=== PATIENT | female | born 1960 | race Caucasian/White ===

== ENCOUNTER 2019-01-28 14:14 | Emergency (ER) | payer OTHER ==
[~2019-01-28] VITALS: Ht 160 cm; Wt 99.8 kg
[2019-01-28 14:47] VITALS: BP 147/80
[2019-01-28] MEDS ORDERED: KETOROLAC 60 MG/2 ML VIAL. IM ONE (15:15)
[2019-01-28] MEDS ORDERED: predniSONE 20 MG TABLET PO ONE (15:15)
[2019-01-28] MEDS ORDERED: HYDROcodone/APAP 5/325MG 1 TAB TABLET PO ONE (15:15)
--- NOTE | 2019-01-28 15:27 | RAD ---
3 view study of the right knee Clinical indications: Right knee pain and swelling. FINDINGS: No acute fracture or dislocation or lytic process is seen. There is mild degenerative joint space narrowing and spurring of the medial tibiofemoral joint compartment. Mild degenerative spurring of the patella is seen. No significant knee joint effusion is seen radiographically. IMPRESSION: Mild primary degenerative osteoarthritis. Electronically signed by: Rafi Peace MD (01/28/2019 3:24 PM) [facility]
[2019-01-28] MEDS ORDERED: METH4TAB2 PO (15:48)
[2019-01-28] MEDS ORDERED: DICL50TA2 PO (15:48)
--- NOTE | 2019-01-28 15:49 | PHYS DOC ---
Past Medical History Past Medical History: Other Additional Past Medical Histor: RA Past Surgical History: Hip Replacement, Knee Replacement Additional Past Surgical Histo: L. SIDE Alcohol Use: None Drug Use: None Adult General Chief Complaint Chief Complaint: LOWER EXTREMITY SWELLING HPI HPI Patient is a 58 year old female with history of rheumatoid arthritis who presents to the ED today complaining of 10 out of 10 right knee pain that began 2 days ago. Patient states she has history of chronic right knee pain but it has gotten worse in the last 2 days. Denies any known injury. Describes the pain as sharp and a feeling of tightness behind her knee and states the pain radiates to the groin. Denies anything specifically relieving the pain. Review of Systems Review of Systems Constitutional: Denies fever or chills [] Musculoskeletal: Reports right knee pain Integument: Denies rash or skin lesions [] Neurologic: Denies headache, focal weakness or sensory changes [] All other systems were reviewed and found to be within normal limits, except as documented in this note. Current Medications Current Medications Current Medications Medications (Trade) Dose Ordered Sig/Chris Start Time Stop Time Status Last Admin Dose Admin Acetaminophen/ Hydrocodone Bitart (Lortab 5/325) 2 tab 1X ONCE 01/28/19 15:15 01/28/19 15:16 DC 01/28/19 15:23 2 TAB Ketorolac Tromethamine (Toradol Im) 60 mg 1X ONCE 01/28/19 15:15 01/28/19 15:16 DC 01/28/19 15:23 60 MG Prednisone (Prednisone) 60 mg 1X ONCE 01/28/19 15:15 01/28/19 15:16 DC 01/28/19 15:23 60 MG Allergies Allergies Allergies Coded Allergies Type Severity Reaction Last Updated Verified No Known Drug Allergies 01/28/19 No Physical Exam Physical Exam Constitutional: Well developed, well nourished, no acute distress, non-toxic appearance. [] Abdomen: Bowel sounds normal, soft, no tenderness, no masses, no pulsatile masses. [] Skin: Warm, dry, no erythema, no rash. [] Back: No tenderness, no CVA tenderness. [] Extremities: Obese patient. Right knee with no obvious deformity. Full range of motion to the right knee. +2 right pedal pulse. Cap refill less than 2 seconds to the right lower extremity. Sensation intact to the right lower extremity. Neurologic: Alert and oriented X 3, normal motor function, normal sensory function, no focal deficits noted. [] Psychologic: Affect normal, judgement normal, mood normal. [] Current Patient Data Vital Signs Vital Signs Date Time Temp Pulse Resp B/P (MAP) Pulse Ox O2 Delivery O2 Flow Rate FiO2 01/28/19 15:23 18 01/28/19 14:47 98.1 88 147/80 (102) 96 Room Air 98.1 EKG EKG [] Radiology/Procedures Radiology/Procedures []PROCEDURE: KNEE RIGHT 3V 3 view study of the right knee Clinical indications: Right knee pain and swelling. FINDINGS: No acute fracture or dislocation or lytic process is seen. There is mild degenerative joint space narrowing and spurring of the medial tibiofemoral joint compartment. Mild degenerative spurring of the patella is seen. No significant knee joint effusion is seen radiographically. IMPRESSION: Mild primary degenerative osteoarthritis. Electronically signed by: Michael Peace MD (01/28/2019 3:24 PM) [facility] DICTATED and SIGNED BY: MICHAEL PEACE MD DATE: 01/28/19 1524 Course & Med Decision Making Course & Med Decision Making Pertinent Labs and Imaging studies reviewed. (See chart for details) This is a 58-year-old. Patient presented to the ED today with right knee pain that began 2 days ago and has gotten worse over the weekend. No known injury. History of chronic knee pain. Right knee x-rays interpreted by radiologist were noted for DJD of the right knee. Shan bandage applied to the right knee by the ED RN, neurovascular exam is intact. Ice elevation encouraged. Prescription for Medrol Dosepak and diclofenac provided. Follow-up with orthopedic doctor in the next 7 days. Dragon Disclaimer Dragon Disclaimer This electronic medical record was generated, in whole or in part, using a voice recognition dictation system. Departure Departure Impression: Primary Impression: Right knee DJD Additional Impression: Right knee pain Disposition: 01 HOME, SELF-CARE Condition: STABLE Referrals: TASHI TERAN MD (PCP) ROSANA BRAVO MD follow up in one week Patient Instructions: Arthritis, Degenerative-Brief Additional Instructions: You were evaluated in the emergency for right knee pain and noted to have osteoarthritis. Try to ice elevate the extremity. Follow-up with your own doctor in one week. Scripts Diclofenac Potassium (DICLOFENAC POTASSIUM) 50 Mg Tablet 1 TAB PO BID, #20 TAB 0 Refills Prov: SHAMEKA BURGER DIAMOND 01/28/19 Methylprednisolone (MEDROL) 4 Mg Tab.ds.pk 1 PKG PO UD, #1 PKG Prov: SHAMEKA BURGER [employer]CH[employer]IC 01/28/19 Problem Qualifiers Primary Impression: Right knee DJD Osteoarthritis type: primary Qualified Codes: M17.11 - Unilateral primary osteoarthritis, right knee Additional Impression: Right knee pain Chronicity: chronic Qualified Codes: M25.561 - Pain in right knee; G89.29 - Other chronic pain SHAMEKA BURGER DIAMOND Jan 28, 2019 15:48
== END 2019-01-28 16:18 | disposition home or self-care (01) ==
LOC: ER 14:14
DX: M17.11 Unilateral primary osteoarthritis, right knee (principal); G89.29 Other chronic pain; M06.9 Rheumatoid arthritis, unspecified; Z96.652 Presence of left artificial knee joint; Z96.642 Presence of left artificial hip joint
CPT/HCPCS: 73562; 96372; 99284; J1885; J7512

== ENCOUNTER → 2019-04-16 | Outpatient (CLI) | payer OTHER ==
[~2019-04-16] MED LIST: DICL50TA2 PO; METH4TAB2 PO
--- NOTE | 2019-04-16 14:12 | CARD ---
MR#: [id number] Date of Study: 04/16/2019 Ordering Physician: HELIO BRUCE, Referring Physician: Lalo LEYVA: Kristine Colmenares APPROVED REPORT EXAM: Two-dimensional and M-mode echocardiogram with Doppler and color Doppler. Other Information Quality : AverageHR: 63bpm INDICATION Hypertension/HCVD 2D DIMENSIONS RVDd3.1 (2.9-3.5cm)Left Atrium(2D)3.7 (1.6-4.0cm) IVSd1.1 (0.7-1.1cm)Aortic Root(2D)2.4 (2.0-3.7cm) LVDd5.0 (3.9-5.9cm)LVOT Diameter2.0 (1.8-2.4cm) PWd0.7 (0.7-1.1cm)LVDs3.0 (2.5-4.0cm) FS (%) 38.9 %SV80.3 ml LVEF(%)69.1 (>50%) Aortic Valve AoV Peak Tony.196.3cm/sAoV VTI47.1cm AO Peak GR.15.4mmHgLVOT Peak Tony.128.6cm/s AO Mean GR.9mmHgAVA (VMAX)2.00cm2 Mitral Valve MV E Cxzzlipj54.0cm/sMV E Peak Gr.5mmHg MV DECEL [id number] A Qrnxubjm463.9cm/s MV E Mean Gr.2mmHgE/A Ratio0.8 Pulmonary Valve PV Peak Sgvqbqwk909.8cm/s Tricuspid Valve RAP [id number] Pulmonary Vein S1 Gtimdmvk19.0cm/sD2 [place]33.0cm/s LEFT VENTRICLE The left ventricle is normal size. There is normal left ventricular wall thickness. The left ventricu lar systolic function is normal. The Ejection Fraction is 60-65%. There is normal LV segmental wall m otion. Transmitral Doppler flow pattern is Grade I-abnormal relaxation pattern. RIGHT VENTRICLE The right ventricle is normal size. The right ventricular systolic function is normal. ATRIA The left atrium size is normal. The right atrium size is normal. The interatrial septum is intact wit h no evidence for an atrial septal defect or patent foramen ovale as noted on 2-D or Doppler imaging. AORTIC VALVE The aortic valve is calcified but opens well. Doppler and Color Flow revealed trace aortic regurgitat ion. There is no significant aortic valvular stenosis. MITRAL VALVE The mitral valve is calcified but opens well. There is no evidence of mitral valve prolapse. There is no mitral valve stenosis. Doppler and Color-flow revealed trace mitral regurgitation. TRICUSPID VALVE The tricuspid valve is normal in structure and function. Doppler and Color Flow revealed trace tricus pid regurgitation. There is no tricuspid valve stenosis. PULMONIC VALVE The pulmonic valve is not well visualized. Doppler and Color Flow revealed no pulmonic valvular regur gitation. GREAT VESSELS The aortic root is normal in size. The ascending aorta is normal in size. The IVC is normal in size a nd collapses >50% with inspiration. PERICARDIAL EFFUSION There is no pleural effusion. There is no evidence of significant pericardial effusion. Critical Notification Critical Value: No <Conclusion> The left ventricular systolic function is normal. The Ejection Fraction is 60-65%. There is normal LV segmental wall motion. Transmitral Doppler flow pattern is Grade I-abnormal relaxation pattern. Trace mitral regurgitation. Trace tricuspid regurgitation. There is no evidence of significant pericardial effusion. Signed by : Helio Bruce, Electronically Approved : 04/16/2019 14:11:46
== END | disposition home or self-care (01) ==
LOC: ECHO 12:55
PROVIDERS: ATTEND Internal Medicine Cardiovascular Disease
DX: I08.0 Rheumatic disorders of both mitral and aortic valves (principal); I11.9 Hypertensive heart disease without heart failure
CPT/HCPCS: 93306

== ENCOUNTER → 2019-04-16 | Outpatient (CLI) | payer OTHER ==
--- NOTE | 2019-04-16 15:12 | RAD ---
MR#: [id number] Date of Study: 04/16/2019 Ordering Physician: HELIO MCWILLIAMS, Referring Physician: HELIO MCWILLIAMS, Tech: CARLOS MANUEL Bustos, RDPR, t APPROVED REPORT Patient Location : OUT-PATIENT Indications Lower Extremity Pain : Right spider veins Risk Factors Obesity Medications Aspirin Findings The right great saphenous vein was not visualized. The right lesser saphenous vein does not demonstrate any evidence of reflux. The left greater saphenous vein measures 8 mm and has no evidence of significant reflux. The left les ser saphenous vein has no significant reflux. Critical Notification Critical Value: No <Conclusion> 1. Right great saphenous vein visualized 2. No significant reflux in the bilateral lesser saphenous and left greater saphenous veins. Signed by : Dagoberto Castro, Electronically Approved : 04/16/2019 15:12:12
== END | disposition home or self-care (01) ==
LOC: US 13:48
PROVIDERS: ATTEND Internal Medicine Cardiovascular Disease
DX: I86.8 Varicose veins of other specified sites (principal); E66.9 Obesity, unspecified; M25.461 Effusion, right knee; M79.604 Pain in right leg
CPT/HCPCS: 93970